=== PATIENT | female | born 1945 | race Caucasian/White ===

== ENCOUNTER 2019-08-12 08:47 | Outpatient (CLI) | payer MEDICARE, OTHER, SELFPAY ==
--- NOTE | 2019-08-12 08:50 | MM_ITS ---
WS: [id number] BILATERAL DIGITAL SCREENING MAMMOGRAPHY WITH CAD CLINICAL INFORMATION: breast cancer screening HISTORY: Screening mammogram. No current complaints. COMPARISON: TECHNIQUE: Bilateral CC and MLO views. FINDINGS: The breasts are composed of heterogeneous fibroglandular density tissue, which can limit the detectio n of small underlying mass lesions. No suspicious mass, asymmetry, calcifications, or architectural d istortion. No evidence of malignancy. Benign punctate and lucent centered calcifications. Benign secr etory calcifications. MM/[place] [id number] IMPRESSION: BI-RADS: 2-Benign FOLLOW UP: 1 Year Follow-up Recommend return to annual screening mammography.
== END 2019-08-12 08:48 | disposition home or self-care (01) ==
LOC: RADSHAW 08:47
PROVIDERS: PCP Nurse Practitioner Family; Visit Provider Nurse Practitioner Family
DX: Z12.31 Encounter for screening mammogram for malignant neoplasm of breast (principal)
CPT/HCPCS: 77067

== ENCOUNTER → 2019-09-19 16:20 | Outpatient (BNVA) | payer MEDICARE, OTHER, SELFPAY | PROVIDERS: PCP Nurse Practitioner Family; Visit Provider Nurse Practitioner Family | DX: E53.8 Deficiency of other specified B group vitamins (principal); M54.9 Dorsalgia, unspecified; G89.29 Other chronic pain; R10.9 Unspecified abdominal pain; I10 Essential (primary) hypertension; E03.9 Hypothyroidism, unspecified; M1A.9XX0 Chronic gout, unspecified, without tophus (tophi); R10.10 Upper abdominal pain, unspecified; M54.5 Low back pain | CPT/HCPCS: 80053; 82150; 82607; 83690; 84443; 84550; 85025 ==

== ENCOUNTER → 2019-09-20 16:50 | Outpatient (BNVA) | payer MEDICARE, OTHER, SELFPAY | PROVIDERS: PCP Nurse Practitioner Family; Visit Provider Nurse Practitioner Family | DX: Z20.828 Contact with and (suspected) exposure to other viral communicable diseases (principal) | CPT/HCPCS: 87635 ==

== ENCOUNTER → 2019-11-17 12:27 | Outpatient (BNVA) | payer MEDICARE, OTHER, SELFPAY | PROVIDERS: PCP Nurse Practitioner Family; Visit Provider Nurse Practitioner Family | DX: M54.5 Low back pain (principal); G89.29 Other chronic pain; R10.10 Upper abdominal pain, unspecified; M1A.9XX0 Chronic gout, unspecified, without tophus (tophi) | CPT/HCPCS: 80053; 81000; 83690; 84550; 85025; 87086 ==

== ENCOUNTER → 2019-11-24 12:21 | Outpatient (BNVA) | payer MEDICARE, OTHER, SELFPAY | PROVIDERS: PCP Nurse Practitioner Family; Visit Provider Nurse Practitioner Family | DX: Z23 Encounter for immunization (principal); N18.9 Chronic kidney disease, unspecified | CPT/HCPCS: 80048 ==

== ENCOUNTER 2019-11-25 11:03 | Outpatient (CLI) | payer MEDICARE, OTHER, SELFPAY ==
--- NOTE | 2019-11-25 12:59 | XR_ITS ---
WS: [id number] LUMBAR SPINE: 3 VIEWS TECHNIQUE: AP, lateral and L5-S1 spot. HISTORY: low back pain COMPARISON: None available. Increase in the lumbar lordosis. Diffuse osteopenia. Prior vertebroplasty at L1 with a minimal compression fracture. Mild disc space narrowing and desiccation and small osteophytes. Mild facet joint arthritis at L5-S1. SI joints are symmetric bilaterally. No soft tissue abnormalities. Prior cholecystectomy. XR/XR lumbar spine 2-3V* [id number] IMPRESSION: 1. Prior vertebroplasty at L1. 2. Increase in lumbar lordosis with mild spondylitic changes.
--- NOTE | 2019-11-25 12:59 | XR_ITS ---
WS: [id number] THORACIC SPINE TECHNIQUE: AP and lateral views are performed. HISTORY: thoracic back pain COMPARISON: None available. Normal thoracic alignment. No compression fractures. Mild disc space narrowing and small endplate hyp ertrophic osteophytes. Pedicles are all identified. Diffuse osteopenia. XR/XR thoracic spine 3V* [id number] IMPRESSION: Osteopenia and mild diffuse spondylitic changes. No fracture.
--- NOTE | 2019-11-25 13:30 | CT_ITS ---
WS: [id number] CT ABDOMEN AND PELVIS WITH CONTRAST HISTORY: abd pain; generalized TECHNIQUE: Imaging performed of the abdomen and pelvis with IV contrast. Single phase imaging of the abdomen. Coronal and sagittal reformats are submitted. All CT scans at [facility] use at least one of these dose optimization techniques: automated exposure control; mA and/or kV adjustment per patient size (includes targeted exams where dose is matched to clinical indication); or iterativ e reconstruction. IV CONTRAST: Omnipaque 300; 95 mL IV. Oral contrast: Yes. DLP: 1153.1 mGycm COMPARISON: 05/04/2014 Lower thorax: Benign granuloma RIGHT lung base. Mild enlargement the heart chambers. Small hiatal her jose. Liver/biliary system: Normal size liver. Mild central bile duct dilatation is similar to the prior st udy. Probably related to cholecystectomy. No mass. Mild common bile duct dilatation. Gallbladder: Status post cholecystectomy. Pancreas: Normal. Spleen: Normal. Adrenal glands: Normal. Right kidney: Mild atrophy and cortical thinning. Exophytic cortical cyst from the mid kidney measure s 6 mm. No obstruction. Left kidney: Normal. Aorta: Mild atherosclerosis with no aneurysm. Lymphadenopathy: None. Free fluid: None. GI tract: Normal appendix. Cecum is medial to the distal small bowel may be due to mobile cecum but t here is no obstruction. A few benign appearing diverticula in the sigmoid colon without acute inflamm ation. Abdominal wall: Unremarkable abdominal wall. No hernia. Pelvis: Pelvic structures are partially obscured by artifact from the RIGHT hip prosthesis. Uterus is atrophic as expected. Bones: Prior report dated L1. Osteopenia. Prior RIGHT hip arthroplasty. CT/CT abdomen pelvis w con* [id number] IMPRESSION: 1. No acute abdominal or pelvic abnormalities are identified. 2. Prior cholecystectomy with physiologic dilatation of the common bile duct a nd central hepatic ducts. 3. Normal appendix. 4. Cecum is mobile and has now moved central to the distal small bowel but the re is no obstruction or volvulus at this time. Patient is at risk for volvulus.
[2019-11-25] MEDS: iodixanol 320 mg/mL 100mL Btl IV (13:37)
== END 2019-11-25 11:04 | disposition home or self-care (01) ==
LOC: RADWPI 11:12
PROVIDERS: PCP Nurse Practitioner Family; Visit Provider Nurse Practitioner Family
DX: R10.84 Generalized abdominal pain (principal); M54.5 Low back pain; M54.6 Pain in thoracic spine; M85.88 Other specified disorders of bone density and structure, other site
CPT/HCPCS: 72072; 72100; 74177; Q9967

== ENCOUNTER → 2019-12-29 08:59 | Outpatient (BNVA) | payer MEDICARE, OTHER, SELFPAY | PROVIDERS: PCP Nurse Practitioner Family; Visit Provider Nurse Practitioner Family | DX: I10 Essential (primary) hypertension (principal); E53.8 Deficiency of other specified B group vitamins; E78.5 Hyperlipidemia, unspecified; E03.9 Hypothyroidism, unspecified; K21.9 Gastro-esophageal reflux disease without esophagitis; G57.90 Unspecified mononeuropathy of unspecified lower limb; N18.31 Chronic kidney disease, stage 3a; R53.83 Other fatigue | CPT/HCPCS: 80053; 80061; 82306; 84443; 85025 ==

== ENCOUNTER → 2020-07-18 16:39 | Outpatient (BNVA) | payer MEDICARE, OTHER, SELFPAY | PROVIDERS: PCP Family Medicine; Visit Provider Family Medicine | DX: E03.9 Hypothyroidism, unspecified (principal); E53.8 Deficiency of other specified B group vitamins; E78.5 Hyperlipidemia, unspecified; I10 Essential (primary) hypertension; K21.9 Gastro-esophageal reflux disease without esophagitis; E55.9 Vitamin D deficiency, unspecified; M1A.9XX0 Chronic gout, unspecified, without tophus (tophi) | CPT/HCPCS: 80053; 80061; 82306; 82607; 84443; 85025 ==

== ENCOUNTER → 2020-10-25 17:52 | Outpatient (BNVA) | payer MEDICARE, OTHER, SELFPAY | PROVIDERS: PCP Family Medicine; Visit Provider Family Medicine | DX: I10 Essential (primary) hypertension (principal); E03.9 Hypothyroidism, unspecified; E78.5 Hyperlipidemia, unspecified; K21.9 Gastro-esophageal reflux disease without esophagitis | CPT/HCPCS: 80053; 80061; 84443; 85025 ==

== ENCOUNTER → 2021-01-28 10:20 | Outpatient (BNVA) | payer MEDICARE, OTHER, SELFPAY | PROVIDERS: PCP Family Medicine; Visit Provider Family Medicine | DX: I10 Essential (primary) hypertension (principal); E03.9 Hypothyroidism, unspecified; E53.8 Deficiency of other specified B group vitamins; G62.9 Polyneuropathy, unspecified; E55.9 Vitamin D deficiency, unspecified; E78.5 Hyperlipidemia, unspecified; K21.9 Gastro-esophageal reflux disease without esophagitis | CPT/HCPCS: 80053; 80061; 82306; 82607; 84443; 85025 ==

== ENCOUNTER → 2021-04-26 10:04 | Outpatient (BNVA) | payer MEDICARE, OTHER, SELFPAY | PROVIDERS: PCP Family Medicine; Visit Provider Family Medicine | DX: E55.9 Vitamin D deficiency, unspecified (principal); E53.8 Deficiency of other specified B group vitamins; M79.606 Pain in leg, unspecified; E03.9 Hypothyroidism, unspecified; I10 Essential (primary) hypertension; N18.31 Chronic kidney disease, stage 3a; E78.5 Hyperlipidemia, unspecified; G89.29 Other chronic pain | CPT/HCPCS: 80053; 80061; 82306; 82607; 84443; 85025 ==

== ENCOUNTER → 2021-07-01 12:04 | Outpatient (BNVA) | payer MEDICARE, OTHER, SELFPAY | PROVIDERS: PCP Family Medicine; Visit Provider Family Medicine | DX: R13.10 Dysphagia, unspecified (principal); E03.9 Hypothyroidism, unspecified; E53.8 Deficiency of other specified B group vitamins; I10 Essential (primary) hypertension; F41.9 Anxiety disorder, unspecified | CPT/HCPCS: 84443 ==

== ENCOUNTER → 2021-08-06 17:10 | Outpatient (BNVA) | payer MEDICARE, OTHER, SELFPAY | PROVIDERS: PCP Family Medicine; Visit Provider Family Medicine | DX: M25.561 Pain in right knee (principal); M25.562 Pain in left knee | CPT/HCPCS: 73562 ==

== ENCOUNTER → 2021-08-20 16:03 | Outpatient (BNVA) | payer MEDICARE, OTHER, SELFPAY | PROVIDERS: PCP Family Medicine; Visit Provider Family Medicine | DX: M54.9 Dorsalgia, unspecified (principal) | CPT/HCPCS: 72100 ==

== ENCOUNTER 2021-08-25 15:33 | Emergency (ER) | payer MEDICARE, OTHER, SELFPAY ==
[2021-08-25] VITALS (8 sets, daily range): BP systolic 122–158; BP diastolic 67–84; PULSE 55–71; RESP 14–16; O2SAT 94–98
--- NOTE | 2021-08-25 15:35 | XRR_ITS ---
PROCEDURE INFORMATION: Exam: XR Chest Exam date and time: 08/25/2021 3:50 PM Age: 76 years old Clinical indication: Angina; Additional info: Cp TECHNIQUE: Imaging protocol: Radiologic exam of the chest. Views: 1 view. COMPARISON: CR Ribs LEFT w PA Chest [id number] 08/04/2018 3:02 PM FINDINGS: Lungs: There is shallow inspiration with diffuse volume loss. There is hazy linear density in the lung bases which is probable atelectasis without definite lobar consolidation. Pulmonary vascularity is within normal limits. Pleural spaces: Unremarkable. No pleural effusion. No pneumothorax. Heart/Mediastinum: The heart is enlarged. Bones/joints: No acute abnormality. XR/XR chest 1V portable [id number] IMPRESSION: There is hazy linear density in the lung bases which is probable atelectasis without definite lobar consolidation.
--- NOTE | 2021-08-25 15:48 | W.ED.ABDPA2 ---
Documented by User: Kelly Nunes MD 08/25/21 16:25 HPI - Abdominal Pain General: Chief Complaint: Chest Pain Stated Complaint: ABD PAIN; CHEST PAIN Time Seen by Provider: 08/25/21 15:38 Source: patient Mode of arrival: ambulatory Limitations: no limitations History of Present Illness: 76-year-old female who states that she had eaten a couple hours ago and got sudden onset of nausea along with some abdominal pain and neck pain. States she became diaphoretic and did have some dyspnea as well. States she did drive down the road and then called EMS. They state they first arrived here she was diaphoretic and having a low blood pressure she states she feels much improved currently she denies any pain currently does have a little nausea denies any chest pain. Patient blood pressures improved. She denies any fevers or recent illness. Associated Symptoms: Reports nausea and vomiting; Denies chills, dysuria and fever(s) Review of Systems Const: Denies: fever(s), chills, body aches or change in appetite Eyes: Denies: blurry vision or eye discomfort ENMT: Denies: throat pain or dental pain Card: Reports: chest pain Resp: Denies: dyspnea GI: Reports: abdominal pain, nausea and vomiting : Denies: dysuria Musc: Denies: neck pain or back pain Skin/Breast: Denies: rash Neuro: Denies: headache(s) Psych: Denies: depression Florian/Lymph: Denies: easy bruising All/Imm: Denies: urticaria PFSH ED PFSH: Medical History Acute URI Chronic gout Dyslipidemia Essential hypertension GERD (gastroesophageal reflux disease) Hypothyroid Vitamin B12 deficiency Vitamin D deficiency Family History Mother Hypertension Denies family history of Diabetes Chronic kidney disease (CKD) Social History Smoking and tobacco status: never smoked Alcohol intake: never Adopted: No Lives independently: Yes Household members: spouse Housing: House Marital status: Number of children: 1 Highest education level completed: 11th Grade service: No Current occupational status: retired and disabled History of recent travel: No Physical Exam Const: COMMON NORMALS: no acute distress, patient oriented x3 and healthy appearing HENMT: COMMON NORMALS: normocephalic and atraumatic HEAD & SCALP: normocephalic and atraumatic Eye: COMMON NORMALS: Equal, round and reactive pupils present and EOMs intact bilaterally PUPIL: Yes Equal, round and reactive pupils present Neck/C-Spine: COMMON NORMALS: full ROM and supple Chest: COMMONS NORMALS: normal inspection of the chest and normal palpation of entire chest wall Resp: COMMON NORMALS: normal respiratory effort, No retractions, No use of accessory muscles and clear to auscultation bilaterally AUSCULTATION: clear to auscultation bilaterally Cardio: COMMON NORMALS: regular rate, regular rhythm and No murmurs present (Cardio) RATE: regular rate RHYTHM: regular rhythm GI: COMMON NORMALS: Normal to inspection, nondistended, normoactive bowel sounds present, Soft to palpation, non-tender and no masses PALPATION: Yes Soft to palpation Extremity: COMMON NORMALS: normal to inspection and full ROM Neuro: COMMON NORMALS: patient oriented x3, moves all extremities and no focal motor deficits Psych: COMMON NORMALS: mental status grossly normal, Normal thought process present and cooperative THOUGHT PROCESS: Normal thought process present Skin: COMMON NORMALS: no rashes or lesions noted and no wounds GENERAL SKIN EXAM: no rashes or lesions noted Course Vital Signs: Vital signs: Vital Signs Pulse Rate 58 L 08/25/21 19:33 Respiratory Rate 16 08/25/21 19:33 Blood Pressure 147/73 08/25/21 19:33 Pulse Oximetry 97 08/25/21 19:33 MDM - Abdominal Pain Lab Data : 08/25/21 16:10 08/25/21 16:10 Labs/Radiology: Radiology Impressions Chest X-Ray 08/25/21 15:35 IMPRESSION: There is hazy linear density in the lung bases which is probable atelectasis without definite lobar consolidation. Abdomen/Pelvis CT 08/25/21 16:46 IMPRESSION: No acute findings. COMMENTS: Consistent with the [employer]'s Incidental Findings Committee white paper (J Am Bo Radiol 2018): Any incidental renal lesion less than 1 cm or classified as too small to characterize, or any incidental cystic renal lesion characterized as simple-appearing, is likely benign. No follow-up imaging is recommended for these lesions per consensus recommendations based on imaging criteria. Laboratory Results WBC 8.2 10^3/uL (4.0-10.0) 08/25/21 16:10 RBC 4.95 10^6/uL (4.1-5.3) 08/25/21 16:10 Hgb 13.2 g/dL (11.5-15.3) 08/25/21 16:10 Hct 42.0 % (37.0-47.0) 08/25/21 16:10 MCV 84.8 fl (81-99) 08/25/21 16:10 MCH 26.7 pg (28.0-34.0) L 08/25/21 16:10 MCHC 31.4 g/dL (30.0-36.0) 08/25/21 16:10 RDW 15.6 % (12.1-15.1) H 08/25/21 16:10 Plt Count 346 10^3/cmm (130-400) 08/25/21 16:10 MPV 9.4 fL (7.4-10.4) 08/25/21 16:10 Neut % (Auto) 70.5 % 08/25/21 16:10 Lymph % (Auto) 16.1 % 08/25/21 16:10 Maries % (Auto) 10.1 % 08/25/21 16:10 Eos % (Auto) 1.8 % 08/25/21 16:10 Baso % (Auto) 0.6 % 08/25/21 16:10 Neut # (Auto) 5.79 10^3/uL (1.8-7.7) 08/25/21 16:10 Lymph # (Auto) 1.3 10^3/uL (0.8-4.8) 08/25/21 16:10 Maries # (Auto) 0.8 10^3/uL (0.2-0.9) 08/25/21 16:10 Eos # (Auto) 0.2 10^3/uL (0.0-0.8) 08/25/21 16:10 Baso # (Auto) 0.1 10^3/uL (0.0-0.1) 08/25/21 16:10 Nucleated RBC % (auto) 0 % 08/25/21 16:10 Nucleated RBCs # 0.0 /100WBC 08/25/21 16:10 Sodium 136 mmol/L (136-145) 08/25/21 16:10 Potassium 4.6 mmol/L (3.5-5.1) 08/25/21 16:10 Chloride 99 mmol/L (98-107) 08/25/21 16:10 Carbon Dioxide 26 mmol/L (22-29) 08/25/21 16:10 Anion Gap 15.6 (5-19) 08/25/21 16:10 BUN 39 mg/dL (8-23) H 08/25/21 16:10 Creatinine 2.0 mg/dL (0.5-0.9) H 08/25/21 16:10 GFR Calculation Not Reportable 08/25/21 16:10 Glucose 115 mg/dL (65-115) 08/25/21 16:10 Calculated Osmolality 292 mOsm/kg (285-295) 08/25/21 16:10 Calcium 9.5 mg/dL (8.5-10.5) 08/25/21 16:10 Total Bilirubin 0.2 mg/dL (0.15-1.2) 08/25/21 16:10 AST 15 U/L (0-32) 08/25/21 16:10 ALT 10 U/L (0-33) 08/25/21 16:10 Alkaline Phosphatase 100 IU/L (35-105) 08/25/21 16:10 Troponin T Baseline 21 ng/L (0-10) H 08/25/21 16:10 Troponin T 120 Minute 19.15 ng/L (0-10) H 08/25/21 18:10 Delta Troponin T -1.85 ABS# (0-10) L 08/25/21 18:10 Total Protein 7.6 g/dL (6.6-8.7) 08/25/21 16:10 Albumin 4.3 g/dL (3.5-5.2) 08/25/21 16:10 Globulin 3.3 g/dL (1.3-4.6) 08/25/21 16:10 Lipase 50 U/L (13-60) 08/25/21 16:10 EKG Data EKG 1: I personally reviewed and interpreted this EKG as follows: EKG interpretation date: 08/25/21 EKG interpretation time: 16:01 Interpretation: sinus megan hr [address] or t wave abnormalities qrs 102 qtc 420 Discharge Plan Discharge Patient Disposition: Home Clinical Impression: Chest pain Condition: Stable Prescriptions: No Action cyanocobalamin (vitamin B-12) 1,000 mcg/mL solution 1,000 mcg IM .montly 30 Days Qty: 3 3RF ezetimibe [Zetia] 10 mg tablet 10 mg PO DAILY Qty: 30 2RF furosemide [Lasix] 20 mg tablet 20 mg PO QAM Qty: 90 3RF levothyroxine 25 mcg tablet 25 mcg PO DAILY Qty: 90 3RF omeprazole 40 mg capsule,delayed release(DR/EC) 40 mg PO BID Qty: 180 3RF potassium chloride 10 mEq tablet extended release 10 meq PO DAILY Qty: 90 4RF escitalopram oxalate [Lexapro] 10 mg tablet 10 mg PO BID Qty: 180 1RF clobetasol 0.05 % ointment 1 applic topical BID 21 Days Qty: 60 1RF Rx Instructions: to legs mupirocin 2 % ointment 1 applic topical BID Qty: 22 1RF Rx Instructions: to open weeping areas valsartan [Diovan] 320 mg tablet 320 mg PO DAILY Qty: 90 3RF amlodipine 10 mg tablet 10 mg PO DAILY Qty: 90 3RF buspirone 7.5 mg tablet 7.5 mg PO BID Qty: 60 1RF pregabalin 75 mg capsule 75 mg PO BID Qty: 180 1RF meloxicam 7.5 mg tablet 7.5 mg PO BID Qty: 60 3RF hydrocodone-acetaminophen 5-325 mg tablet 1 tab PO TID PRN (Reason: pain) 30 Days Qty: 90 0RF icosapent ethyl [Vascepa] 1 gram capsule 2 g PO BID Qty: 120 2RF Restasis 0.05 % dropperette 1 drp ophthalmic (eye) Q12H Qty: 90 3RF naloxone 4 mg/actuation spray,non-aerosol 4 mg intranasal Q2M Qty: 1 0RF Rx Instructions: spray 1 dose into ONE nostril; alternate nostrils w each dose until help arrives tizanidine 4 mg tablet 4 mg PO TID PRN (Reason: Muscle Spasm) 0RF cholecalciferol (vitamin D3) 1,250 mcg (50,000 unit) capsule 1,250 mcg PO Q7D 0RF Vitamin C 500 mg Tablet 500 mg PO DAILY 0RF Discharge Orders: Discharge ED (Routine); Ordered 08/25/21 Ordered By: Prabhjot Macedo Referrals: Crystal Kaplan MD [Primary Care Provider] - 1-3 days Patient Instructions: Chest Pain (ED) Activity Restrictions/Additional Instructions: Return for repeated episodes of chest pain, shortness of breath, vomiting, fever, any other concerning symptoms. Call your doctor tomorrow, let them know you were seen here. She may wish to refer you, or perform more outpatient testing Coding Level of Care Code ED Spacecraft Systems Engineer for Chg Fwd Exam Comprehensive Documented by User: Prabhjot Macedo, 08/25/21 21:07 HPI - Abdominal Pain General: Chief Complaint: Chest Pain Stated Complaint: ABD PAIN; CHEST PAIN Time Seen by Provider: 08/25/21 15:38 PFSH ED PFSH: Medical History Acute URI Chronic gout Dyslipidemia Essential hypertension GERD (gastroesophageal reflux disease) Hypothyroid Vitamin B12 deficiency Vitamin D deficiency Family History Mother Hypertension Denies family history of Diabetes Chronic kidney disease (CKD) Social History Smoking and tobacco status: never smoked Alcohol intake: never Adopted: No Lives independently: Yes Household members: spouse Housing: House Marital status: Number of children: 1 Highest education level completed: 11th Grade service: No Current occupational status: retired and disabled History of recent travel: No Course Vital Signs: Vital signs: Vital Signs Pulse Rate 58 L 08/25/21 19:33 Respiratory Rate 16 08/25/21 19:33 Blood Pressure 147/73 08/25/21 19:33 Pulse Oximetry 97 08/25/21 19:33 MDM - Abdominal Pain Medical Decision Making 76-year-old female checked out to me at shift change by Dr. Nunes. She presents after an episode of chest and epigastric discomfort, diaphoresis and nausea. Her symptoms are completely resolved. They remained so. Her CBC is normal. Her creatinine is 2. She does have a history of chronic kidney disease although her creatinine is a bit worse today. She is given fluids for this. Chest x-ray shows atelectasis. Abdominal CT shows no acute findings. EKG was nonacute. Her troponin did not change significantly at 2 hours. She was counseled on her results. She wishes to go home. She will follow-up with her physician. Lab Data : 08/25/21 16:10 08/25/21 16:10 Labs/Radiology: Radiology Impressions Chest X-Ray 08/25/21 15:35 IMPRESSION: There is hazy linear density in the lung bases which is probable atelectasis without definite lobar consolidation. Abdomen/Pelvis CT 08/25/21 16:46 IMPRESSION: No acute findings. COMMENTS: Consistent with the [employer]'s Incidental Findings Committee white paper (J Am Bo Radiol 2018): Any incidental renal lesion less than 1 cm or classified as too small to characterize, or any incidental cystic renal lesion characterized as simple-appearing, is likely benign. No follow-up imaging is recommended for these lesions per consensus recommendations based on imaging criteria. Laboratory Results WBC 8.2 10^3/uL (4.0-10.0) 08/25/21 16:10 RBC 4.95 10^6/uL (4.1-5.3) 08/25/21 16:10 Hgb 13.2 g/dL (11.5-15.3) 08/25/21 16:10 Hct 42.0 % (37.0-47.0) 08/25/21 16:10 MCV 84.8 fl (81-99) 08/25/21 16:10 MCH 26.7 pg (28.0-34.0) L 08/25/21 16:10 MCHC 31.4 g/dL (30.0-36.0) 08/25/21 16:10 RDW 15.6 % (12.1-15.1) H 08/25/21 16:10 Plt Count 346 10^3/cmm (130-400) 08/25/21 16:10 MPV 9.4 fL (7.4-10.4) 08/25/21 16:10 Neut % (Auto) 70.5 % 08/25/21 16:10 Lymph % (Auto) 16.1 % 08/25/21 16:10 Maries % (Auto) 10.1 % 08/25/21 16:10 Eos % (Auto) 1.8 % 08/25/21 16:10 Baso % (Auto) 0.6 % 08/25/21 16:10 Neut # (Auto) 5.79 10^3/uL (1.8-7.7) 08/25/21 16:10 Lymph # (Auto) 1.3 10^3/uL (0.8-4.8) 08/25/21 16:10 Maries # (Auto) 0.8 10^3/uL (0.2-0.9) 08/25/21 16:10 Eos # (Auto) 0.2 10^3/uL (0.0-0.8) 08/25/21 16:10 Baso # (Auto) 0.1 10^3/uL (0.0-0.1) 08/25/21 16:10 Nucleated RBC % (auto) 0 % 08/25/21 16:10 Nucleated RBCs # 0.0 /100WBC 08/25/21 16:10 Sodium 136 mmol/L (136-145) 08/25/21 16:10 Potassium 4.6 mmol/L (3.5-5.1) 08/25/21 16:10 Chloride 99 mmol/L (98-107) 08/25/21 16:10 Carbon Dioxide 26 mmol/L (22-29) 08/25/21 16:10 Anion Gap 15.6 (5-19) 08/25/21 16:10 BUN 39 mg/dL (8-23) H 08/25/21 16:10 Creatinine 2.0 mg/dL (0.5-0.9) H 08/25/21 16:10 GFR Calculation Not Reportable 08/25/21 16:10 Glucose 115 mg/dL (65-115) 08/25/21 16:10 Calculated Osmolality 292 mOsm/kg (285-295) 08/25/21 16:10 Calcium 9.5 mg/dL (8.5-10.5) 08/25/21 16:10 Total Bilirubin 0.2 mg/dL (0.15-1.2) 08/25/21 16:10 AST 15 U/L (0-32) 08/25/21 16:10 ALT 10 U/L (0-33) 08/25/21 16:10 Alkaline Phosphatase 100 IU/L (35-105) 08/25/21 16:10 Troponin T Baseline 21 ng/L (0-10) H 08/25/21 16:10 Troponin T 120 Minute 19.15 ng/L (0-10) H 08/25/21 18:10 Delta Troponin T -1.85 ABS# (0-10) L 08/25/21 18:10 Total Protein 7.6 g/dL (6.6-8.7) 08/25/21 16:10 Albumin 4.3 g/dL (3.5-5.2) 08/25/21 16:10 Globulin 3.3 g/dL (1.3-4.6) 08/25/21 16:10 Lipase 50 U/L (13-60) 08/25/21 16:10 Discharge Plan Discharge Patient Disposition: Home Clinical Impression: Chest pain Condition: Stable Prescriptions: No Action cyanocobalamin (vitamin B-12) 1,000 mcg/mL solution 1,000 mcg IM .montly 30 Days Qty: 3 3RF ezetimibe [Zetia] 10 mg tablet 10 mg PO DAILY Qty: 30 2RF furosemide [Lasix] 20 mg tablet 20 mg PO QAM Qty: 90 3RF levothyroxine 25 mcg tablet 25 mcg PO DAILY Qty: 90 3RF omeprazole 40 mg capsule,delayed release(DR/EC) 40 mg PO BID Qty: 180 3RF potassium chloride 10 mEq tablet extended release 10 meq PO DAILY Qty: 90 4RF escitalopram oxalate [Lexapro] 10 mg tablet 10 mg PO BID Qty: 180 1RF clobetasol 0.05 % ointment 1 applic topical BID 21 Days Qty: 60 1RF Rx Instructions: to legs mupirocin 2 % ointment 1 applic topical BID Qty: 22 1RF Rx Instructions: to open weeping areas valsartan [Diovan] 320 mg tablet 320 mg PO DAILY Qty: 90 3RF amlodipine 10 mg tablet 10 mg PO DAILY Qty: 90 3RF buspirone 7.5 mg tablet 7.5 mg PO BID Qty: 60 1RF pregabalin 75 mg capsule 75 mg PO BID Qty: 180 1RF meloxicam 7.5 mg tablet 7.5 mg PO BID Qty: 60 3RF hydrocodone-acetaminophen 5-325 mg tablet 1 tab PO TID PRN (Reason: pain) 30 Days Qty: 90 0RF icosapent ethyl [Vascepa] 1 gram capsule 2 g PO BID Qty: 120 2RF Restasis 0.05 % dropperette 1 drp ophthalmic (eye) Q12H Qty: 90 3RF naloxone 4 mg/actuation spray,non-aerosol 4 mg intranasal Q2M Qty: 1 0RF Rx Instructions: spray 1 dose into ONE nostril; alternate nostrils w each dose until help arrives tizanidine 4 mg tablet 4 mg PO TID PRN (Reason: Muscle Spasm) 0RF cholecalciferol (vitamin D3) 1,250 mcg (50,000 unit) capsule 1,250 mcg PO Q7D 0RF Vitamin C 500 mg Tablet 500 mg PO DAILY 0RF Discharge Orders: Discharge ED (Routine); Ordered 08/25/21 Ordered By: Prabhjot Macedo Referrals: Crystal Kaplan MD [Primary Care Provider] - 1-3 days Patient Instructions: Chest Pain (ED) Activity Restrictions/Additional Instructions: Return for repeated episodes of chest pain, shortness of breath, vomiting, fever, any other concerning symptoms. Call your doctor tomorrow, let them know you were seen here. She may wish to refer you, or perform more outpatient testing Coding Level of Care Code ED Spacecraft Systems Engineer for Chg Fwd Exam Comprehensive
[2021-08-25 16:18] LABS: Basophils # 0.1 10^3/uL (0.0-0.1); Basophils % 0.6 %; Eosinophils # 0.2 10^3/uL (0.0-0.8); Eosinophils % 1.8 %; Hemoglobin 13.2 g/dL (11.5-15.3); Lymphocytes # 1.3 10^3/uL (0.8-4.8); Lymphocytes % 16.1 %; Mean Corpuscular HGB Conc 31.4 g/dL (30.0-36.0); Mean Corpuscular Hemoglobin 26.7 pg (28.0-34.0); Mean Corpuscular Volume 84.8 fl (81-99); Mean Platelet Volume 9.4 fL (7.4-10.4); Monocytes # 0.8 10^3/uL (0.2-0.9); Monocytes % 10.1 %; Neutrophils # 5.79 10^3/uL (1.8-7.7); Neutrophils % 70.5 %; Nucleated Red Blood Cells % 0 %; Platelet Count 346 10^3/cmm (130-400); Red Blood Count 4.95 10^6/uL (4.1-5.3); Red Cell Distribution Width 15.6 % (12.1-15.1); White Blood Count 8.2 10^3/uL (4.0-10.0)
[2021-08-25 16:39] LABS: Alanine Aminotransferase 10 U/L (0-33); Albumin Level 4.3 g/dL (3.5-5.2); Alkaline Phosphatase 100 IU/L (35-105); Anion Gap 15.6 (5-19); Aspartate Amino Transferase 15 U/L (0-32); Blood Urea Nitrogen 39 mg/dL (8-23); Calcium 9.5 mg/dL (8.5-10.5); Carbon Dioxide 26 mmol/L (22-29); Chloride 99 mmol/L (98-107); Globulin 3.3 g/dL (1.3-4.6); Glucose 115 mg/dL (65-115); Lipase 50 U/L (13-60); Osmolality Calculated 292 mOsm/kg (285-295); Potassium 4.6 mmol/L (3.5-5.1); Sodium 136 mmol/L (136-145); Total Bilirubin 0.2 mg/dL (0.15-1.2); Total Protein 7.6 g/dL (6.6-8.7)
[2021-08-25 16:40] LABS: Troponin(5th) Baseline 21 ng/L (0-10)
--- NOTE | 2021-08-25 16:46 | CTR_ITS ---
PROCEDURE INFORMATION: Exam: CT Abdomen And Pelvis Without Contrast Exam date and time: 08/25/2021 5:42 PM Age: 76 years old Clinical indication: Abdominal pain and other: Chest and abd pain; Generalized; Additional info: Abd pain pale and diaphoretic TECHNIQUE: Imaging protocol: Computed tomography of the abdomen and pelvis without contrast. Radiation optimization: All CT scans at this facility use at least one of these dose optimization techniques: automated exposure control; mA and/or kV adjustment per patient size (includes targeted exams where dose is matched to clinical indication); or iterative reconstruction. COMPARISON: CT abdomen pelvis w con* [id number] 11/25/2019 1:22 PM RADIATION DOSE METRICS: Total DLP (mGy-cm): 1281.43 FINDINGS: Liver: Normal. No mass. Gallbladder and bile ducts: Cholecystectomy. No ductal dilation. Pancreas: Normal. No ductal dilation. Spleen: Normal. No splenomegaly. Adrenal glands: Normal. No mass. Kidneys and ureters: Small right renal cyst. No renal stones. No hydronephrosis. Stomach and bowel: Scattered colonic diverticula without findings of acute diverticulitis. No obstruction. No mucosal thickening. Appendix: No evidence of appendicitis. Intraperitoneal space: Unremarkable. No free air. No significant fluid collection. Vasculature: Unremarkable. No abdominal aortic aneurysm. Lymph nodes: Unremarkable. No enlarged lymph nodes. Urinary bladder: Unremarkable as visualized. Reproductive: Unremarkable as visualized. Bones/joints: Generalized osseous demineralization. Vertebroplasty material noted in the L1 vertebral body. No acute fracture. Right total hip arthroplasty noted. Soft tissues: Unremarkable. CT/CT abdomen pelvis wo con [id number] IMPRESSION: No acute findings. COMMENTS: Consistent with the [employer]'s Incidental Findings Committee white paper (J Am Bo Radiol 2018): Any incidental renal lesion less than 1 cm or classified as too small to characterize, or any incidental cystic renal lesion characterized as simple-appearing, is likely benign. No follow-up imaging is recommended for these lesions per consensus recommendations based on imaging criteria.
[2021-08-25] MEDS: sodium chloride 0.9% 1,000 ML 999 ML IV (18:30)
[2021-08-25 18:38] LABS: Troponin 5 2HR 19.15 ng/L (0-10)
[2021-08-25 18:50] LABS: Troponin 5 2HR Delta -1.85 ABS# (0-10)
--- NOTE | 2021-08-25 21:35 | ECG_ITS ---
[facility] Test Date: 2021-08-25 Pat Name: Kristi Dye Department: Room: Gender: Female Rewinder Operator: : 1945 Requested By: Kelly Nunes Order Number: [id number] Aron MD: Robbie Patterson M.D. Measurements Intervals [place] Rate: 58 P: 63 MI: 184 QRS: 50 QRSD: 102 T: 61 QT: 424 QTc: 417 Interpretive Statements SINUS BRADYCARDIA WITH SINUS ARRHYTHMIA Compared to ECG 06/18/2016 16:00:35 No significant changes Electronically Signed On 08-25-2021 23:42:01 CDT by Robbie Patterson M.D. [id number]
== END 2021-08-25 19:35 | disposition home or self-care (01) ==
PROVIDERS: Emergency Medicine; Emergency Provider Emergency Medicine; PCP Family Medicine
DX: R07.9 Chest pain, unspecified (principal); E78.5 Hyperlipidemia, unspecified; I10 Essential (primary) hypertension
CPT/HCPCS: 71045; 74176; 80053; 83690; 84484; 85025; 93005; 96360; 99285; J7030

== ENCOUNTER → 2021-09-04 11:21 | Outpatient (BNVA) | payer MEDICARE, OTHER, SELFPAY | PROVIDERS: PCP Family Medicine; Visit Provider Family Medicine | DX: Z09 Encounter for follow-up examination after completed treatment for conditions other than malignant neoplasm (principal); R10.12 Left upper quadrant pain; R10.13 Epigastric pain | CPT/HCPCS: 80076; 85025; 87338 ==

== ENCOUNTER → 2021-09-11 12:09 | Outpatient (BNVA) | payer MEDICARE, OTHER, SELFPAY | PROVIDERS: PCP Family Medicine; Visit Provider Family Medicine | DX: R10.13 Epigastric pain (principal) | CPT/HCPCS: 82270 ==

== ENCOUNTER → 2021-11-27 17:24 | Outpatient (BNVA) | payer MEDICARE, OTHER, SELFPAY | PROVIDERS: PCP Family Medicine; Visit Provider Family Medicine | DX: Z23 Encounter for immunization (principal); I10 Essential (primary) hypertension; E53.8 Deficiency of other specified B group vitamins; E03.9 Hypothyroidism, unspecified; M79.606 Pain in leg, unspecified; G57.90 Unspecified mononeuropathy of unspecified lower limb; E78.5 Hyperlipidemia, unspecified; N18.31 Chronic kidney disease, stage 3a; R13.10 Dysphagia, unspecified | CPT/HCPCS: 80053; 80061; 82306; 84443; 85025 ==

== ENCOUNTER → 2022-03-05 16:08 | Outpatient (BNVA) | payer MEDICARE, OTHER, SELFPAY | PROVIDERS: PCP Family Medicine; Visit Provider Family Medicine | DX: M25.561 Pain in right knee (principal) | CPT/HCPCS: 73562 ==

== ENCOUNTER → 2022-04-18 11:19 | Outpatient (BNVA) | payer MEDICARE, OTHER, SELFPAY | PROVIDERS: PCP Family Medicine; Visit Provider Nurse Practitioner Family | DX: M25.561 Pain in right knee (principal); E53.8 Deficiency of other specified B group vitamins | CPT/HCPCS: 73562 ==

== ENCOUNTER → 2022-04-23 18:14 | Outpatient (BNVA) | payer MEDICARE, OTHER, SELFPAY | PROVIDERS: PCP Family Medicine; Visit Provider Family Medicine | DX: E53.8 Deficiency of other specified B group vitamins (principal); E03.9 Hypothyroidism, unspecified; E55.9 Vitamin D deficiency, unspecified; E78.5 Hyperlipidemia, unspecified; K21.9 Gastro-esophageal reflux disease without esophagitis; N18.31 Chronic kidney disease, stage 3a; I12.9 Hypertensive chronic kidney disease with stage 1 through stage 4 chronic kidney disease, or unspecified chronic kidney disease | CPT/HCPCS: 80053; 80061; 82306; 82607; 84443; 85025 ==

== ENCOUNTER → 2022-07-25 10:33 | Outpatient (BNVA) | payer MEDICARE, OTHER, SELFPAY | PROVIDERS: PCP Family Medicine; Visit Provider Family Medicine | DX: E03.9 Hypothyroidism, unspecified (principal); E53.8 Deficiency of other specified B group vitamins; E55.9 Vitamin D deficiency, unspecified; E78.5 Hyperlipidemia, unspecified; M1A.9XX0 Chronic gout, unspecified, without tophus (tophi); I10 Essential (primary) hypertension; N18.31 Chronic kidney disease, stage 3a | CPT/HCPCS: 80053; 80061; 82306; 82607; 84443; 84550; 85025 ==

== ENCOUNTER → 2022-10-07 13:04 | Outpatient (BNVA) | payer MEDICARE, OTHER, SELFPAY | PROVIDERS: PCP Family Medicine; Visit Provider Nurse Practitioner Family | DX: L57.8 Other skin changes due to chronic exposure to nonionizing radiation (principal); L57.0 Actinic keratosis; D22.5 Melanocytic nevi of trunk; L81.4 Other melanin hyperpigmentation; L82.0 Inflamed seborrheic keratosis | CPT/HCPCS: 17004; 17110; 99213 ==

== ENCOUNTER → 2022-10-23 10:53 | Outpatient (BNVA) | payer MEDICARE, OTHER, SELFPAY | PROVIDERS: PCP Family Medicine; Visit Provider Family Medicine | DX: E03.9 Hypothyroidism, unspecified (principal); E53.8 Deficiency of other specified B group vitamins; E55.9 Vitamin D deficiency, unspecified; E78.5 Hyperlipidemia, unspecified; I10 Essential (primary) hypertension; M1A.9XX0 Chronic gout, unspecified, without tophus (tophi) | CPT/HCPCS: 80053; 80061; 82306; 82607; 84443; 84550; 85025 ==

== ENCOUNTER 2022-12-12 10:01 | Outpatient (CLI) | payer MEDICARE, OTHER, SELFPAY ==
--- NOTE | 2022-12-12 11:00 | MR_ITS ---
WS: [id number] MRI RIGHT KNEE NONCONTRAST TECHNIQUE: Axial PD, coronal PD fat sat, coronal PD, sagittal PD, and sagittal PD fat-sat images obta ined. CLINICAL INFORMATION: right knee pain COMPARISON: None. FINDINGS: Moderate tricompartment arthritis. Distal quadriceps and patella tendons are intact. Small to moderat e suprapatellar effusion. Normal ACL and PCL. Moderate to advanced chondromalacia patella. Normal med ial and lateral patellar retinaculum. No subchondral edema. Small lobulated popliteal cyst measuring 3.6 x 0.9 cm. Normal medial and lateral collateral ligaments. Thinning of the medial and lateral meniscus. Subchond ral edema involving the lateral joint compartment with grade IV chondromalacia. Grade III chondromala marilee medial joint compartment. Peripheral extrusion of the lateral meniscus. Complex tear with bluntin g of the anterior horn lateral meniscus. 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 IMPRESSION: 1. Small to moderate suprapatellar effusion. 2. ACL and PCL intact. 3. Moderate chondromalacia patella. No subchondral edema. 4. Complex tear with blunting involving the anterior horn lateral meniscus. 5. Grade IV chondromalacia lateral joint compartment with subchondral edema. 6. Small lobulated popliteal cyst. Outbridge grading:
== END 2022-12-12 10:02 | disposition home or self-care (01) ==
LOC: RAD 10:01
PROVIDERS: PCP Family Medicine; Visit Provider Family Medicine
DX: S83.271A Complex tear of lateral meniscus, current injury, right knee, initial encounter (principal); X58.XXXA Exposure to other specified factors, initial encounter; M25.461 Effusion, right knee; M22.41 Chondromalacia patellae, right knee; M71.22 Synovial cyst of popliteal space [Baker], left knee
CPT/HCPCS: 73721

== ENCOUNTER → 2023-07-17 12:34 | Outpatient (BNVA) | payer MEDICARE, OTHER, SELFPAY | PROVIDERS: PCP Family Medicine; Visit Provider Family Medicine | DX: E53.8 Deficiency of other specified B group vitamins (principal); M10.9 Gout, unspecified; E03.9 Hypothyroidism, unspecified; I10 Essential (primary) hypertension; E78.5 Hyperlipidemia, unspecified; N18.31 Chronic kidney disease, stage 3a; E55.9 Vitamin D deficiency, unspecified | CPT/HCPCS: 80053; 80061; 82306; 82607; 84443; 84550; 85025 ==

== ENCOUNTER → 2023-12-15 13:16 | Outpatient (BNVA) | payer MEDICARE, OTHER, SELFPAY | PROVIDERS: PCP Family Medicine; Visit Provider Nurse Practitioner Family | DX: L57.0 Actinic keratosis (principal); L57.8 Other skin changes due to chronic exposure to nonionizing radiation; D22.5 Melanocytic nevi of trunk; L81.4 Other melanin hyperpigmentation; D69.2 Other nonthrombocytopenic purpura; L82.0 Inflamed seborrheic keratosis | CPT/HCPCS: 17000; 17110; 99213 ==

== ENCOUNTER → 2024-03-28 09:15 | Outpatient (BNVA) | payer MEDICARE, OTHER, SELFPAY | PROVIDERS: PCP Family Medicine; Visit Provider Nurse Practitioner Family | DX: L57.8 Other skin changes due to chronic exposure to nonionizing radiation (principal); L81.4 Other melanin hyperpigmentation; D22.61 Melanocytic nevi of right upper limb, including shoulder; L82.0 Inflamed seborrheic keratosis; R20.8 Other disturbances of skin sensation; L53.8 Other specified erythematous conditions; L29.89 Other pruritus; Z78.9 Other specified health status; R58 Hemorrhage, not elsewhere classified; L57.0 Actinic keratosis | CPT/HCPCS: 17000; 17110; 99213 ==